=== PATIENT | female | born 1975 | race American Indian/Alaskan Native ===

== ENCOUNTER 2017-01-29 16:04 | Outpatient (CLI) | payer OTHER ==
[2017-01-29 16:47] LABS: Blood Urea Nitrogen 8 mg/dL (7-17)
--- NOTE | 2017-01-30 07:58 | Magnetic Resonance Report ---
MR PELVIS WITH AND WITHOUT CONTRAST HISTORY: Uterine fibroids. TECHNIQUE: Multiple T1 and T2-weighted images were obtained with and without fat suppression. Post contrast T1 fat-sat in all 3 planes following 15 cc of Multihance. COMPARISON: None. FINDINGS: The uterus is anteverted. The uterus is enlarged measuring 15.5 x 7.7 x 8.0 cm. 4 uterine fibroids are identified. The largest fibroid is located in the uterine fundus and has a submucosal component. This fibroid measures 8.4 x 6.0 x 7.4 cm and demonstrates near complete enhancement following IV contrast. No evidence for internal calcifications or significant areas of cystic change. A 1 cm intramural fibroid in the anterior wall demonstrates mild enhancement. A second 1 cm intramural fibroid in the anterior wall demonstrates mild enhancement. A 1 cm submucosal fibroid in the posterior wall demonstrates mild enhancement. There is an approximate 2 cm right ovarian lesion containing fat which is consistent with an ovarian dermoid. There also appears to be an adjacent 1 cm right ovarian cyst. The left ovary is within normal limits. The bladder is unremarkable. The distal ureters are nondilated. This visualized bowel loops are within normal limits. No evidence for pelvic fluid collection or adenopathy. Normal bony pelvis. Impression: Uterine fibroid disease as outlined above. 4 fibroids are identified all of which enhance following IV gadolinium. The dominant fibroid is in the uterine fundus. 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
== END 2017-01-29 16:05 | disposition home or self-care (01) ==
LOC: MRI 16:04
PROVIDERS: ATTEND Obstetrics & Gynecology
DX: D25.0 Submucous leiomyoma of uterus (principal); D25.1 Intramural leiomyoma of uterus; N85.2 Hypertrophy of uterus
CPT/HCPCS: 36415; 72197; 82565; 84520; A9577